=== PATIENT | male | born 1960 | race Caucasian/White ===

== ENCOUNTER → 2017-11-26 | Outpatient (CLI) | payer BC ==
[~2017-11-26] MED LIST: HYDROCODONE; Z.0.CYCLOBENZAPRINE1 PO; Z.0.MELOXICAM15 MG PO
== END ==
LOC: DX 13:24 → EDSTATUS 11-27 11:30
PROVIDERS: ATTEND Internal Medicine Gastroenterology
DX: Z01.818 Encounter for other preprocedural examination (principal); Z53.8 Procedure and treatment not carried out for other reasons; Z12.11 Encounter for screening for malignant neoplasm of colon
CPT/HCPCS: 93005

== ENCOUNTER 2023-10-10 14:46 | Emergency (ER) | payer BC, OTHER ==
[~2023-10-10] VITALS: Ht 182.9 cm; Wt 115.7 kg
[~2023-10-10 14:46] MED LIST changes: +GABAPENTIN300 MG PO; +PREDNISONE50 MG PO; +TIZANIDINE HCL6 MG PO
[2023-10-10 14:54] VITALS: O2SAT 100
[2023-10-10] MEDS ORDERED: CYCLOBENZAPRINE HCL 10 MG TAB PO ONE ×2 (15:00→15:30)
[2023-10-10] MEDS ORDERED: PREDNISONE 10 MG TAB PO ONE (15:30)
[2023-10-10] MEDS ORDERED: KETOROLAC TROMETHAMINE 60 MG/2 ML VIAL IM ONE (15:30)
== END 2023-10-10 15:58 | disposition home or self-care (01) ==
LOC: ER 15:03
DX: M54.17 Radiculopathy, lumbosacral region (principal); I10 Essential (primary) hypertension; G89.29 Other chronic pain
CPT/HCPCS: 99282; J1885; J7512